=== PATIENT | male | born 1945 | race Caucasian/White ===

== ENCOUNTER 2017-02-21 20:56 | Inpatient (IN) ==
[2017-02-21] MEDS ORDERED: NITROGLYCERIN SL 0.4 MG TABLET SL PRN (21:19)
[2017-02-21] MEDS ORDERED: ASPIRIN 325 MG TABLET PO STA (21:19)
[2017-02-21] MEDS ORDERED: FUROSEMIDE 40 MG/4 ML VIAL IV STA (21:20)
[2017-02-21] MEDS ORDERED: ASPIRIN 325 MG TABLET ONE (21:33)
[2017-02-21] MEDS ORDERED: FUROSEMIDE 40 MG/4 ML VIAL ONE (21:33)
[2017-02-21 22:00] LABS: Basophils % 0.2 % (0.0-0.8); Eosinophils % 0.2 % (0.00-10.9); Hematocrit 25.6 VOL% (42.0-52.0); Hemoglobin 7.6 GM/DL (14.0-18.0); Immature Granulocytes % 0.5 %; Immature Granulocytes Absolute 0.05 #; Lymphocytes # 0.8 10*3/uL (1.4-4.0); Lymphocytes % 7.7 % (21.2-54.2); Mean Corpuscular HGB Conc 29.7 GM/DL (32-36); Mean Corpuscular Hemoglobin 24 PG (27-34); Mean Corpuscular Volume 79.3 FL (87-102); Monocytes # 1.1 10*3/uL (0.11-0.8); Monocytes % 10.6 % (1.7-12.7); Neutrophils # 8.4 10*3/uL (1.4-7.4); Neutrophils % 80.8 % (38.7-73.9); Platelet Count 203 T/CUMM (130-400); Red Blood Count 3.23 MC/CUMM (3.8-5.5); Red Cell Distribution Width 16.1 % (9.3-17.3); White Blood Count 10.3 T/CUMM (4-12)
[2017-02-21 22:18] LABS: Calcium 9.6 MG/DL (8.5-10.1); Osmolality,Calculated 282.7 MOS/KG (273-304); Potassium 4.1 MMOL/L (3.5-5.1)
[2017-02-21] MEDS ORDERED: MAGNESIUM SULF RIDER 4 GM in PREMIX 1 EACH IV PRN (22:40)
[2017-02-21] MEDS ORDERED: ONDANSETRON 4 MG/2 ML VIAL IV PRN (22:40)
[2017-02-21] MEDS ORDERED: ZALEPLON 5 MG CAPSULE PO PRN (22:40)
[2017-02-21] MEDS ORDERED: MAGNESIUM SULF RIDER 2 GM in PREMIX 1 EACH IV PRN (22:40)
[2017-02-21] MEDS ORDERED: DOCUSATE SODIUM 100 MG CAPSULE PO PRN (22:40)
[2017-02-21] MEDS: ENOXAPARIN 40 MG/0.4 ML SYRINGE SUBCUT SCH (23:15)
[2017-02-21] MEDS: DEXTROSE 5% NACL 0.45% 1,000 ML IV SCH (23:15)
[2017-02-22] MEDS ORDERED: glipiZIDE 10 MG TABLET PO PRN (01:58)
[2017-02-22] MEDS: NITROGLYCERIN DRIP 50 MG/250 ML BOTTLE IV SCH (04:45)
[2017-02-22] MEDS ORDERED: FUROSEMIDE 40 MG/4 ML VIAL IV STA (05:14)
[2017-02-22] MEDS ORDERED: FUROSEMIDE 40 MG/4 ML VIAL ONE ×2 (05:17→11:52)
[2017-02-22] MEDS ORDERED: NITROGLYCERIN DRIP 50 MG/250 ML BOTTLE IV ONE (05:18)
[2017-02-22] MEDS ORDERED: ISOSORBIDE DINITRATE 20 MG TABLET PO SCH (09:00)
[2017-02-22] MEDS ORDERED: LOSARTAN 25 MG TABLET PO SCH (09:00)
[2017-02-22 11:52] LABS: Basophils % 0.2 % (0.0-0.8); Eosinophils # 0.1 10*3/uL (0.0-0.87); Hematocrit 24.4 VOL% (42.0-52.0); Hemoglobin 7.2 GM/DL (14.0-18.0); Immature Granulocytes % 0.5 %; Immature Granulocytes Absolute 0.04 #; Lymphocytes # 0.9 10*3/uL (1.4-4.0); Mean Corpuscular HGB Conc 29.5 GM/DL (32-36); Mean Corpuscular Hemoglobin 24 PG (27-34); Mean Corpuscular Volume 79.5 FL (87-102); Mean Platelet Volume 12.5 FL (9.6-12.0); Monocytes # 0.8 10*3/uL (0.11-0.8); Monocytes % 9.7 % (1.7-12.7); Neutrophils # 6.5 10*3/uL (1.4-7.4); Neutrophils % 77.6 % (38.7-73.9); Platelet Count 187 T/CUMM (130-400); Red Blood Count 3.07 MC/CUMM (3.8-5.5); Red Cell Distribution Width 16.4 % (9.3-17.3); White Blood Count 8.4 T/CUMM (4-12)
[2017-02-22] MEDS ORDERED: CARVEDILOL 3.125 MG TABLET ONE (11:52)
[2017-02-22] MEDS ORDERED: PANTOPRAZOLE 40 MG TABLET PO ONE (11:52)
[2017-02-22] MEDS ORDERED: CLOPIDOGREL 75 MG TABLET ONE (11:53)
[2017-02-22] MEDS: CLOPIDOGREL 75 MG TABLET PO SCH ×2 (12:08→20:57)
[2017-02-22] MEDS: PANTOPRAZOLE 40 MG TABLET PO SCH (12:08)
[2017-02-22] MEDS: CARVEDILOL 3.125 MG TABLET PO SCH ×2 (12:08→20:58)
[2017-02-22] MEDS: FUROSEMIDE 40 MG/4 ML VIAL IV SCH ×2 (12:17→19:00)
[2017-02-22] MEDS: LISINOPRIL 2.5 MG TABLET PO SCH (13:13)
[2017-02-22] MEDS ORDERED: ASPIRIN 325 MG TABLET ONE (13:14)
[2017-02-22] MEDS: ASPIRIN 325 MG TABLET PO SCH ×2 (13:40→18:59)
[2017-02-22] MEDS: PRAVASTATIN 40 MG TABLET PO SCH ×2 (13:40→18:59)
[2017-02-22] MEDS: GABAPENTIN 100 MG CAPSULE PO SCH ×2 (18:59→20:57)
[2017-02-22] MEDS: metOLazone 2.5 MG TABLET PO SCH (18:59)
[2017-02-22] MEDS ORDERED: FUROSEMIDE 40 MG/4 ML VIAL IV ONE (22:04)
[2017-02-22] MEDS ORDERED: ACETAMINOPHEN 325 MG TABLET PO PRN (22:06)
[2017-02-22] MEDS ORDERED: diphenhydrAMINE CAP 25 MG CAPSULE PO PRN (22:07)
[2017-02-22] MEDS: ENOXAPARIN 40 MG/0.4 ML SYRINGE SUBCUT SCH (22:26)
[2017-02-23] MEDS: DEXTROSE 5% NACL 0.45% 1,000 ML IV SCH ×2 (01:57→23:54)
[2017-02-23] MEDS: NITROGLYCERIN DRIP 50 MG/250 ML BOTTLE IV SCH (04:29)
[2017-02-23 04:45] LABS: Basophils # 0.1 10*3/uL (0.0-0.2); Basophils % 0.6 % (0.0-0.8); Eosinophils # 0.2 10*3/uL (0.0-0.87); Eosinophils % 2.3 % (0.00-10.9); Hematocrit 28.4 VOL% (42.0-52.0); Hemoglobin 8.6 GM/DL (14.0-18.0); Immature Granulocytes % 0.4 %; Immature Granulocytes Absolute 0.03 #; Lymphocytes # 1.3 10*3/uL (1.4-4.0); Lymphocytes % 16.5 % (21.2-54.2); Mean Corpuscular HGB Conc 30.3 GM/DL (32-36); Mean Corpuscular Hemoglobin 24 PG (27-34); Mean Corpuscular Volume 80.5 FL (87-102); Mean Platelet Volume 13.3 FL (9.6-12.0); Monocytes # 1.1 10*3/uL (0.11-0.8); Monocytes % 13.9 % (1.7-12.7); Neutrophils # 5.1 10*3/uL (1.4-7.4); Neutrophils % 66.3 % (38.7-73.9); Platelet Count 189 T/CUMM (130-400); Red Blood Count 3.53 MC/CUMM (3.8-5.5); Red Cell Distribution Width 15.9 % (9.3-17.3); White Blood Count 7.7 T/CUMM (4-12)
[2017-02-23 05:20] LABS: Calcium 8.6 MG/DL (8.5-10.1); Magnesium 1.9 MG/DL (1.8-2.4); Potassium 3.8 MMOL/L (3.5-5.1)
[2017-02-23] MEDS: FUROSEMIDE 40 MG/4 ML VIAL IV SCH ×2 (09:10→16:02)
[2017-02-23] MEDS: ASPIRIN 325 MG TABLET PO SCH (09:11)
[2017-02-23] MEDS: GABAPENTIN 100 MG CAPSULE PO SCH ×3 (09:12→20:03)
[2017-02-23] MEDS: CARVEDILOL 3.125 MG TABLET PO SCH ×2 (09:12→20:03)
[2017-02-23] MEDS: PRAVASTATIN 40 MG TABLET PO SCH (09:13)
[2017-02-23] MEDS: LISINOPRIL 2.5 MG TABLET PO SCH (09:13)
[2017-02-23] MEDS: CLOPIDOGREL 75 MG TABLET PO SCH ×2 (09:13→20:03)
[2017-02-23] MEDS: metOLazone 2.5 MG TABLET PO SCH (09:14)
[2017-02-23] MEDS: PANTOPRAZOLE 40 MG TABLET PO SCH (09:14)
[2017-02-23] MEDS: POTASSIUM CHLORIDE 20 MEQ TABLET PO PRN (09:14)
[2017-02-23 22:14] LABS: Hematocrit 33.9 VOL% (42.0-52.0); Hemoglobin 10.6 GM/DL (14.0-18.0)
[2017-02-23] MEDS: ENOXAPARIN 40 MG/0.4 ML SYRINGE SUBCUT SCH (23:59)
[2017-02-24] MEDS: NITROGLYCERIN DRIP 50 MG/250 ML BOTTLE IV SCH (04:23)
[2017-02-24 07:46] LABS: Basophils # 0.1 10*3/uL (0.0-0.2); Basophils % 0.6 % (0.0-0.8); Eosinophils # 0.3 10*3/uL (0.0-0.87); Eosinophils % 3.2 % (0.00-10.9); Hematocrit 35.2 VOL% (42.0-52.0); Hemoglobin 10.9 GM/DL (14.0-18.0); Immature Granulocytes % 0.4 %; Immature Granulocytes Absolute 0.04 #; Lymphocytes # 1.2 10*3/uL (1.4-4.0); Lymphocytes % 12.4 % (21.2-54.2); Mean Corpuscular Hemoglobin 24 PG (27-34); Mean Corpuscular Volume 78.7 FL (87-102); Mean Platelet Volume 11.7 FL (9.6-12.0); Neutrophils # 6.7 10*3/uL (1.4-7.4); Neutrophils % 72.4 % (38.7-73.9); Platelet Count 217 T/CUMM (130-400); Red Blood Count 4.47 MC/CUMM (3.8-5.5); Red Cell Distribution Width 16.2 % (9.3-17.3); White Blood Count 9.3 T/CUMM (4-12)
[2017-02-24 08:33] LABS: Calcium 8.5 MG/DL (8.5-10.1); Potassium 3.7 MMOL/L (3.5-5.1)
[2017-02-24] MEDS: CLOPIDOGREL 75 MG TABLET PO SCH ×2 (08:55→20:13)
[2017-02-24] MEDS: PRAVASTATIN 40 MG TABLET PO SCH (08:55)
[2017-02-24] MEDS: GABAPENTIN 100 MG CAPSULE PO SCH ×3 (08:55→20:13)
[2017-02-24] MEDS: FUROSEMIDE 40 MG/4 ML VIAL IV SCH ×2 (08:55→15:28)
[2017-02-24] MEDS: metOLazone 2.5 MG TABLET PO SCH (08:56)
[2017-02-24] MEDS: LISINOPRIL 2.5 MG TABLET PO SCH (08:56)
[2017-02-24] MEDS: CARVEDILOL 3.125 MG TABLET PO SCH ×2 (08:56→20:12)
[2017-02-24] MEDS: PANTOPRAZOLE 40 MG TABLET PO SCH (08:56)
[2017-02-24] MEDS: ASPIRIN 325 MG TABLET PO SCH (08:56)
[2017-02-24] MEDS ORDERED: diphenhydrAMINE CAP 25 MG CAPSULE PO ONE ×2 (09:32→20:44)
[2017-02-24] MEDS ORDERED: DIAZEPAM 5 MG TABLET PO ONE ×2 (09:33→20:44)
[2017-02-24] MEDS: SODIUM CHLORIDE 0.9% 1,000 ML IV SCH (10:47)
[2017-02-24] MEDS ORDERED: ACETAMINOPHEN 325 MG TABLET PO PRN (17:50)
[2017-02-24] MEDS: METHOCARBAMOL 500 MG TABLET PO PRN (20:11)
[2017-02-24] MEDS ORDERED: MAGNESIUM SULF RIDER 2 GM in PREMIX 1 EACH IV PRN (20:44)
[2017-02-24] MEDS ORDERED: POTASSIUM CHLORIDE RIDER 10 MEQ in PREMIX 1 EACH IV PRN (20:44)
[2017-02-24] MEDS: ENOXAPARIN 40 MG/0.4 ML SYRINGE SUBCUT SCH (22:58)
[2017-02-25 02:48] LABS: Albumin 2.9 G/DL (3.4-5.0); Bilirubin,Total 0.6 MG/DL (0.2-1.0); Calcium 8.1 MG/DL (8.5-10.1); Osmolality,Calculated 289.3 MOS/KG (273-304); Potassium 3.7 MMOL/L (3.5-5.1); Total Protein 6.3 G/DL (6.4-8.3)
[2017-02-25] MEDS: SODIUM CHLORIDE 0.9% 1,000 ML IV SCH ×2 (06:17→18:30)
[2017-02-25] MEDS: NITROGLYCERIN DRIP 50 MG/250 ML BOTTLE IV SCH (06:17)
[2017-02-25] MEDS ORDERED: DIAZEPAM 5 MG TABLET ONE (07:39)
[2017-02-25] MEDS ORDERED: MIDAZOLAM 2 MG/2 ML VIAL ONE (08:42)
[2017-02-25] MEDS ORDERED: LIDOCAINE 1% 20 ML VIAL ONE (08:42)
[2017-02-25] MEDS ORDERED: MEPERIDINE 25 MG/1 ML VIAL ONE ×2 (08:42→10:16)
[2017-02-25] MEDS ORDERED: HEPARIN 5,000 UNIT/1 ML VIAL ONE ×2 (10:09→10:51)
[2017-02-25] MEDS ORDERED: TIROFIBAN 5,000 MCG/100 ML PREMIX IV ONE (10:09)
[2017-02-25] MEDS ORDERED: TIROFIBAN 5,000 MCG/100 ML PREMIX IV SCH (10:16)
[2017-02-25] MEDS ORDERED: TICAGRELOR 90 MG TABLET ONE (10:51)
[2017-02-25] MEDS ORDERED: ACETAMINOPHEN/CODEINE 300-30 MG TABLET PO PRN (11:10)
[2017-02-25] MEDS: CLOPIDOGREL 75 MG TABLET PO SCH (11:47)
[2017-02-25] MEDS: PRAVASTATIN 40 MG TABLET PO SCH (12:05)
[2017-02-25] MEDS: GABAPENTIN 100 MG CAPSULE PO SCH ×3 (12:05→21:21)
[2017-02-25] MEDS: PANTOPRAZOLE 40 MG TABLET PO SCH (12:05)
[2017-02-25] MEDS: ASPIRIN 325 MG TABLET PO SCH (12:05)
[2017-02-25] MEDS: CARVEDILOL 3.125 MG TABLET PO SCH ×2 (12:06→21:21)
[2017-02-25] MEDS: FUROSEMIDE 40 MG/4 ML VIAL IV SCH (12:06)
[2017-02-25] MEDS: TICAGRELOR 90 MG TABLET PO SCH (21:21)
[2017-02-25] MEDS: POTASSIUM CHLORIDE 20 MEQ TABLET PO PRN (21:21)
[2017-02-26] MEDS: SODIUM CHLORIDE 0.9% 1,000 ML IV SCH (02:31)
[2017-02-26 03:19] LABS: Basophils % 0.5 % (0.0-0.8); Eosinophils # 0.4 10*3/uL (0.0-0.87); Eosinophils % 5.1 % (0.00-10.9); Hematocrit 31.6 VOL% (42.0-52.0); Hemoglobin 9.7 GM/DL (14.0-18.0); Immature Granulocytes % 0.4 %; Immature Granulocytes Absolute 0.03 #; Lymphocytes # 0.7 10*3/uL (1.4-4.0); Lymphocytes % 8.2 % (21.2-54.2); Mean Corpuscular HGB Conc 30.7 GM/DL (32-36); Mean Corpuscular Hemoglobin 25 PG (27-34); Mean Corpuscular Volume 82.1 FL (87-102); Mean Platelet Volume 12.3 FL (9.6-12.0); Monocytes # 1.1 10*3/uL (0.11-0.8); Monocytes % 13.3 % (1.7-12.7); Neutrophils # 6.1 10*3/uL (1.4-7.4); Neutrophils % 72.5 % (38.7-73.9); Platelet Count 209 T/CUMM (130-400); Red Blood Count 3.85 MC/CUMM (3.8-5.5); Red Cell Distribution Width 17.2 % (9.3-17.3); White Blood Count 8.4 T/CUMM (4-12)
[2017-02-26 04:30] LABS: Alanine Aminotransferase 14 U/L (16-61); Albumin 2.9 G/DL (3.4-5.0); Alkaline Phosphatase 74 U/L (45-117); Aspartate Amino Transferase 19 U/L (0-37); Bilirubin,Total < 0.39 MG/DL (0.2-1.0); Blood Urea Nitrogen 34 MG/DL (7-18); Calcium 7.9 MG/DL (8.5-10.1); Glucose 135 MG/DL (74-106); Osmolality,Calculated 288.4 MOS/KG (273-304); Potassium 3.8 MMOL/L (3.5-5.1); Sodium 140 MMOL/L (136-145); Total Protein 6.1 G/DL (6.4-8.3)
[2017-02-26] MEDS: NITROGLYCERIN DRIP 50 MG/250 ML BOTTLE IV SCH (07:27)
[2017-02-26] MEDS ORDERED: ASPIRIN EC 81 MG TABLET PO SCH (09:00)
[2017-02-26] MEDS: METHOCARBAMOL 500 MG TABLET PO PRN (09:49)
[2017-02-26] MEDS: TICAGRELOR 90 MG TABLET PO SCH (09:49)
[2017-02-26] MEDS: GABAPENTIN 100 MG CAPSULE PO SCH (09:50)
[2017-02-26] MEDS: POTASSIUM CHLORIDE 20 MEQ TABLET PO PRN (09:50)
[2017-02-26] MEDS: PANTOPRAZOLE 40 MG TABLET PO SCH (09:51)
[2017-02-26] MEDS: CARVEDILOL 3.125 MG TABLET PO SCH (09:51)
[2017-02-26] MEDS: PRAVASTATIN 40 MG TABLET PO SCH (09:51)
[2017-02-26 10:39] VITALS: BP 123/61
== END 2017-02-26 13:15 | disposition home or self-care (01) | DRG 246 ==
LOC: N.ED 20:56 → N.CC 02-22 18:04 → SUPCPDRO 02-22 18:30 → N.CC 02-22 18:30
PROVIDERS: ADMIT Internal Medicine Interventional Cardiology; ATTEND Internal Medicine Interventional Cardiology